=== PATIENT | male | born 1975 | race Hispanic/Latino ===

== ENCOUNTER 2018-05-27 16:56 | Emergency (ER) | payer OTHER ==
[2018-05-27] MEDS ORDERED: KETOROLAC TROMETHAMINE 30MG/ML ONE (17:32)
[2018-05-27] MEDS ORDERED: LIDOCAINE 5% TOPICAL PATCH TP ONE (17:32)
[2018-05-27] MEDS ORDERED: ORPHENADRINE CITRATE 30 MG/ML ML ONE (17:32)
== END 2018-05-27 18:03 | disposition home or self-care (01) ==
LOC: EDH 16:56
DX: M54.41 Lumbago with sciatica, right side (principal); E11.9 Type 2 diabetes mellitus without complications; Z87.891 Personal history of nicotine dependence
CPT/HCPCS: 96372 ×2; 99284; J1885; J2360